=== PATIENT | male | born 1945 | race Caucasian/White ===

== ENCOUNTER 2020-06-18 16:40 | Emergency (ER) | payer OTHER ==
[~2020-06-18] VITALS: Ht 177.8 cm; Wt 102.1 kg
[~2020-06-18 16:40] MED LIST: ASPI325B PO; ASPI81EC PO; ATOR40TA PO; BENAML20/5 PO; CLON1 PO; CLOP75 PO; FENO145 PO; FOLI1 PO; IRBHYD150 PO; ISOMON30 PO; LEVSOD25 PO; LISI20 PO; OMEP20ER PO; SIMV40 PO; UBID100 PO; VENL150ER PO
[2020-06-18] MEDS ORDERED: AMLO10 PO (17:10)
[2020-06-18] MEDS ORDERED: METO100 PO (17:15)
[2020-06-18] MEDS ORDERED: B-1100 MG PO (17:15)
[2020-06-18 18:08] LABS: BASOPHILS ABSOLUTE AUTO 0.04 K/mm3 (0.00-0.23); BASOPHILS PERCENT AUTO 0 % (0-2); EOSINOPHILS ABSOLUTE AUTO 0.13 K/mm3 (0.00-0.68); EOSINOPHILS PERCENT AUTO 1 % (0-6); Hematocrit 38.6 % (37.0-53.0); Hemoglobin 13.3 g/dL (13.5-17.5); IMMATURE GRAN ABSOLUTE AUTO 0.08 K/mm3 (0.00-0.10); IMMATURE GRAN PERCENT AUTO 1 % (0-1); LYMPHOCYTES ABSOLUTE AUTO 1.06 K/mm3 (0.84-5.20); LYMPHOCYTES PERCENT AUTO 9 % (21-46); MONOCYTES ABSOLUTE AUTO 1.37 K/mm3 (0.16-1.47); MONOCYTES PERCENT AUTO 11 % (4-13); Mean Corpuscular HGB 31.3 pg (26.0-34.0); Mean Corpuscular HGB Conc 34.5 g/dL (31.5-36.5); Mean Corpuscular Volume 91 fL (80-100); Mean Platelet Volume 11.4 fL (9.1-12.4); NEUTROPHILS ABSOLUTE AUTO 9.44 K/mm3 (1.96-9.15); NEUTROPHILS PERCENT AUTO 78 % (41-73); Platelet Count 153 K/mm3 (150-400); RDW Coefficient Variation 13.9 % (11.7-14.2); RDW Standard Deviation 45.7 fL (35.1-46.3); Red Blood Cell Count 4.25 M/mm3 (4.30-5.90); White Blood Cell Count 12.12 K/mm3 (4.00-11.30)
[2020-06-18 18:42] LABS: Alanine Aminotransfer (ALT/SGP 33 U/L (12-78); Albumin, Blood 3.3 g/dL (3.4-5.0); Albumin/Globulin Ratio 0.9 (0.8-1.8); Alk Phos 117 U/L (50-136); Anion Gap 7 mmol/L (6-16); Aspartate Aminotrans (AST/SGOT 22 U/L (12-37); Bilirubin, Total 0.6 mg/dL (0.1-1.0); Blood Urea Nitrogen 15 mg/dL (8-24); Bun/Creatinine Ratio 15.1 (12.0-20.0); CO2, Blood 27 mmol/L (21-32); Calcium, Blood 9.5 mg/dL (8.5-10.1); Chloride, Blood 108 mmol/L (98-108); Globulin, Blood 3.7 g/dL (2.2-4.0); Glomerular Filtration Rate >60 (60-); Glucose, Blood 115 mg/dL (70-99); Potassium, Blood 3.6 mmol/L (3.5-5.5); Sodium, Blood 142 mmol/L (136-145)
== END 2020-06-18 22:54 | disposition home or self-care (01) ==
LOC: ER 16:40
PROVIDERS: Physician Assistant
DX: R51.9 Headache, unspecified (principal); M54.2 Cervicalgia; I10 Essential (primary) hypertension; I25.10 Atherosclerotic heart disease of native coronary artery without angina pectoris; I25.2 Old myocardial infarction; E78.5 Hyperlipidemia, unspecified; E03.9 Hypothyroidism, unspecified; E11.40 Type 2 diabetes mellitus with diabetic neuropathy, unspecified; Z88.2 Allergy status to sulfonamides; Z88.8 Allergy status to other drugs, medicaments and biological substances; Z79.82 Long term (current) use of aspirin; Z79.899 Other long term (current) drug therapy; Z86.73 Personal history of transient ischemic attack (TIA), and cerebral infarction without residual deficits; Z95.5 Presence of coronary angioplasty implant and graft
CPT/HCPCS: 70450; 70496; 70498; 80053; 85025; 93005; 93010; 96361; 96374; 96375; 96376; 99285-25; J1200; J1885; J2765; J3010; J7120; Q9967

== ENCOUNTER 2020-10-26 12:01 | Day surgery (SDC) | payer OTHER ==
[~2020-10-26] VITALS: Ht 180.3 cm; Wt 95.5 kg
[~2020-10-26 12:01] MED LIST changes: +AMLO10 PO; -ASPI81EC PO; +Aspir 8181 MG PO; +B-1100 MG PO; +HYDCHL12.5 PO; +METO100 PO; +VENL75ER PO
[2020-10-26] MEDS ORDERED: TRAZ100 PO (12:44)
--- NOTE | 2020-10-26 13:16 | NUR ---
DR. HAWTHORNE HERE TO SEE PATIENT.
--- NOTE | 2020-10-26 15:27 | NUR ---
PT WILL BE TRANSFERRED TO U 13. BELONGINGS TO GO WITH PATIENT. CELL PHONE, COIN CHANGE, BILLFOLD, CAR KEYS AND NAIL CLIPPERS IN SHOE.
--- NOTE | 2020-10-26 17:59 | NUR ---
PT ADMIT FROM HC S/P RT CORONARY STENT PLACEMENT. PT A&OX4, RESP EVEN AND UNLABORED ON ROOM AIR, SINUS RHYTHM ON MONITOR, RT RADIAL ACCESS SITE WITH TR BAND IN PLACE. VSS. PT'S SPOUSE UPDATED VIA TELEPHONE, DOLLY [phone]. WILL CONTINUE TO MONITOR AND TREAT ACCORDINGLY UNTIL CHANGE OF SHIFT.
--- NOTE | 2020-10-26 19:41 | NUR ---
CARE ASSUMPTION PT A&O X4. VSS. SPO2 > 92% ON RA. MONITOR SHOWS SR W/ PVC's, HR 80's. R RADIAL ACCESS SITE NOW COMPLETELY DEFLATED, WILL REMOVE TR BAND IN [address]ARD IN PLACE. NS GTT INFUSING PER ORDERS. WILL CONTINUE TO MONITOR.
--- NOTE | 2020-10-26 21:14 | NUR ---
TR BAND REMOVAL TR BAND REMOVAL WNL, NO BLEEDING, NO HEMATOMA. TRANSPARENT DRESSING APPLIED. ARM BOARD IN PLACE. PT DENIES PAIN/DISCOMFORT.
[2020-10-27 04:14] LABS: Hematocrit 34.8 % (37.0-53.0); Hemoglobin 11.8 g/dL (13.5-17.5); Mean Corpuscular HGB 28.4 pg (26.0-34.0); Mean Corpuscular HGB Conc 33.9 g/dL (31.5-36.5); Mean Corpuscular Volume 84 fL (80-100); Platelet Count 188 K/mm3 (150-400); RDW Standard Deviation 45.4 fL (35.1-46.3); Red Blood Cell Count 4.16 M/mm3 (4.30-5.90); White Blood Cell Count 8.91 K/mm3 (4.00-11.30)
[2020-10-27 04:45] LABS: Alanine Aminotransfer (ALT/SGP 23 U/L (12-78); Alk Phos 91 U/L (50-136); Anion Gap 8 mmol/L (6-16); Aspartate Aminotrans (AST/SGOT 30 U/L (12-37); Bilirubin, Total 1.1 mg/dL (0.1-1.0); Blood Urea Nitrogen 21 mg/dL (8-24); Bun/Creatinine Ratio 17.2 (12.0-20.0); CO2, Blood 27 mmol/L (21-32); Calcium, Blood 8.9 mg/dL (8.5-10.1); Chloride, Blood 109 mmol/L (98-108); Creatinine, Blood 1.22 mg/dL (0.60-1.20); Globulin, Blood 3.1 g/dL (2.2-4.0); Glomerular Filtration Rate >60 (60-); Glucose, Blood 96 mg/dL (70-99); Potassium, Blood 3.1 mmol/L (3.5-5.5); Sodium, Blood 144 mmol/L (136-145); Total Protein, Blood 6.1 g/dL (6.4-8.2)
--- NOTE | 2020-10-27 05:57 | NUR ---
SHIFT SUMMARY PT A&O X4. VSS. SPO2 > 92% ON RA. MONITOR SHOWS SB-SR, HR 50's-60's. R RADIAL ACCESS SITE WNL, NO BLEEDING, NO HEMATOMA, TRANSPARENT DRESSING & ARM BOARD IN PLACE. CALL TO MD HAWTHORNE THIS AM TO REPORT POTASSIUM: 3.1 W/ ORDER FOR 40 MEQ PO KCL. MD HAWTHORNE W/ OKAY FOR PT TO DISCHARGE HOME TODAY.
== END 2020-10-27 08:35 | disposition home or self-care (01) ==
LOC: MHTC 12:01 → PCU 15:06 → MHTC 10-27 08:35
PROVIDERS: Internal Medicine Cardiovascular Disease
DX: I25.10 Atherosclerotic heart disease of native coronary artery without angina pectoris (principal); I11.0 Hypertensive heart disease with heart failure; I50.9 Heart failure, unspecified; I77.819 Aortic ectasia, unspecified site; F10.10 Alcohol abuse, uncomplicated; E66.3 Overweight; E78.00 Pure hypercholesterolemia, unspecified; E03.9 Hypothyroidism, unspecified; G47.33 Obstructive sleep apnea (adult) (pediatric); F17.200 Nicotine dependence, unspecified, uncomplicated; Z86.73 Personal history of transient ischemic attack (TIA), and cerebral infarction without residual deficits; Z79.82 Long term (current) use of aspirin; Z68.26 Body mass index [BMI] 26.0-26.9, adult; Z98.61 Coronary angioplasty status
CPT/HCPCS: 36415; 80053; 85027; 85347; 93458; 93571; 99152; 99153; A9270; C1725; C1769; C1874; C1887; C1894; C9600; J1644; J2250; J3010; J7030; J7050; Q9967

== ENCOUNTER 2020-11-18 20:36 | Observation (INO) | payer OTHER ==
[~2020-11-18] VITALS: Ht 180.3 cm; Wt 92.7 kg
[~2020-11-18 20:36] MED LIST changes: +TRAZ100 PO
[2020-11-18] MEDS ORDERED: PLAVIX75 MG PO (21:17)
[2020-11-18] MEDS ORDERED: KLOR-CON 1010 ME1 PO (21:17)
[2020-11-18 21:39] LABS: BASOPHILS ABSOLUTE AUTO 0.05 K/mm3 (0.00-0.23); BASOPHILS PERCENT AUTO 1 % (0-2); EOSINOPHILS ABSOLUTE AUTO 0.26 K/mm3 (0.00-0.68); EOSINOPHILS PERCENT AUTO 3 % (0-6); Hematocrit 36.8 % (37.0-53.0); Hemoglobin 12.6 g/dL (13.5-17.5); IMMATURE GRAN ABSOLUTE AUTO 0.03 K/mm3 (0.00-0.10); IMMATURE GRAN PERCENT AUTO 0 % (0-1); LYMPHOCYTES ABSOLUTE AUTO 1.12 K/mm3 (0.84-5.20); LYMPHOCYTES PERCENT AUTO 12 % (21-46); MONOCYTES ABSOLUTE AUTO 0.81 K/mm3 (0.16-1.47); MONOCYTES PERCENT AUTO 9 % (4-13); Mean Corpuscular HGB 28.4 pg (26.0-34.0); Mean Corpuscular HGB Conc 34.2 g/dL (31.5-36.5); Mean Corpuscular Volume 83 fL (80-100); Mean Platelet Volume 11.8 fL (9.1-12.4); NEUTROPHILS PERCENT AUTO 75 % (41-73); Platelet Count 147 K/mm3 (150-400); RDW Coefficient Variation 15.5 % (11.7-14.2); RDW Standard Deviation 46.5 fL (35.1-46.3); Red Blood Cell Count 4.43 M/mm3 (4.30-5.90); White Blood Cell Count 9.17 K/mm3 (4.00-11.30)
[2020-11-18 22:02] LABS: Alanine Aminotransfer (ALT/SGP 18 U/L (12-78); Albumin, Blood 3.2 g/dL (3.4-5.0); Albumin/Globulin Ratio 0.9 (0.8-1.8); Alk Phos 110 U/L (50-136); Anion Gap 7 mmol/L (6-16); Aspartate Aminotrans (AST/SGOT 10 U/L (12-37); Bilirubin, Total 0.6 mg/dL (0.1-1.0); Blood Urea Nitrogen 23 mg/dL (8-24); Bun/Creatinine Ratio 16.4 (12.0-20.0); CO2, Blood 27 mmol/L (21-32); Calcium, Blood 9.1 mg/dL (8.5-10.1); Chloride, Blood 108 mmol/L (98-108); Ethanol (Alcohol), Blood, Med <3 mg/dL; Globulin, Blood 3.4 g/dL (2.2-4.0); Glomerular Filtration Rate 53 (60-); Glucose, Blood 102 mg/dL (70-99); Potassium, Blood 3.3 mmol/L (3.5-5.5); Salicylate <1.7 mg/dL (2.8-20.0); Sodium, Blood 142 mmol/L (136-145); Total Protein, Blood 6.6 g/dL (6.4-8.2); Troponin I 0.054 ng/mL (0.000-0.040)
[2020-11-18 22:03] LABS: Acetaminophen, Random <2.0 ug/mL (10.0-30.0)
[2020-11-18 23:03] LABS: Source, Urine Catheter
[2020-11-18 23:06] LABS: Appearance, Urine Clear (Clear); Blood, Urine Neg (Neg); Color, Urine Amber (P-Yellow); Glucose Qualitative, Urine Neg (Neg); Ketones, Urine Neg (Neg); Leukocyte Esterase, Urine 1+ (Neg); Nitrite, Urine Neg (Neg); Protein, Urine 2+ (Neg); Urobilinogen, Urine 2+ (Normal)
[2020-11-18 23:09] LABS: Bilirubin, Urine 1+ (Neg)
[2020-11-18 23:11] LABS: Bacteria Mod /hpf; Red Blood Cells, Urine 0-2 /hpf (0-2); Squamous Epithelial Cells Few /hpf (Few)
[2020-11-18 23:12] LABS: Mucus Light (0-Heavy)
[2020-11-18 23:16] LABS: U Amphetamine Screen DETECTED; U Barbituate Screen Not Detected; U Benzodiazapine Screen Not Detected; U Buprenorphine Screen Not Detected; U Cannabinoids Screen DETECTED; U Cocaine Screen Not Detected; U Methadone Screen Not Detected; U Methamphetamine Screen DETECTED; U Opiates Screen Not Detected; U Oxycodone Screen Not Detected; U Phencyclidine Screen Not Detected; U Propoxyphene Screen Not Detected
--- NOTE | 2020-11-19 05:10 | NUR ---
SHIFT SUMMARY- PT. NEW ADMIT FROM ED FOR AMS/WEAKNESS. ARRIVED VIA STRETCHER. ORIENTED TO STAFF AND ROOM. A&O DURING THE NIGHT, I ASSIST. PT. HAD NO COMPLAINTS OF PAIN OR DISCOMFORT T/O THE NIGHT. CONT/INCONT, ATTENDS IN PLACE. PT. ASLEEP MOST OF THE MORING, NO APPARENT DISTRESS NOTED. VSS. CALL LIGHT WITHIN REACH, SIDE RAILS UPX2, AND BED ALARM ON FOR SAFETY. WILL CONT TO MONITOR.
--- NOTE | 2020-11-19 14:22 | NUR ---
PATIENT ALERT AND ORIENTED, VSS. DENIES CHEST PAIN/PRESSURE THIS SHIFT. PATIENT PROVIDED DISCHARGE INFO REGARDING FOLLOW UP PLANS, REASONS TO RETURN TO THE HOSPITAL, AND MEDICATION INFORMATION. PATIENT VERBALIZED UNDERSTANDING. NO SIGNS OF ACUTE DISTRESS.
== END 2020-11-19 15:03 | disposition home or self-care (01) ==
LOC: ER 20:36 → PCU 20:37 → ER 11-19 01:03 → PCU 11-19 01:03
PROVIDERS: Emergency Medicine; ADMIT Family Medicine
DX: F15.10 Other stimulant abuse, uncomplicated (principal); I25.10 Atherosclerotic heart disease of native coronary artery without angina pectoris; I12.9 Hypertensive chronic kidney disease with stage 1 through stage 4 chronic kidney disease, or unspecified chronic kidney disease; N18.30 Chronic kidney disease, stage 3 unspecified; E78.5 Hyperlipidemia, unspecified; E03.9 Hypothyroidism, unspecified; G47.33 Obstructive sleep apnea (adult) (pediatric); E87.6 Hypokalemia; I25.2 Old myocardial infarction; E66.9 Obesity, unspecified; Z68.30 Body mass index [BMI] 30.0-30.9, adult; Z87.891 Personal history of nicotine dependence; Z95.5 Presence of coronary angioplasty implant and graft; Z88.2 Allergy status to sulfonamides; Z88.8 Allergy status to other drugs, medicaments and biological substances; Z79.02 Long term (current) use of antithrombotics/antiplatelets
CPT/HCPCS: 36415; 80053; 81001; 82140; 83605; 84484; 85025; 87086; 93005; 93010; 96360; 96372; 97116; 97162; 97165; 97535; 99285-25; A9270; G0378; G0480; J1650; J7030

== ENCOUNTER 2020-12-29 19:38 | Inpatient (IN) | payer OTHER ==
[~2020-12-29] VITALS: Ht 180.3 cm; Wt 91.2 kg
[~2020-12-29 19:38] MED LIST changes: +KLOR-CON 1010 ME1 PO; +PLAVIX75 MG PO
[2020-12-29 20:03] LABS: BASOPHILS ABSOLUTE AUTO 0.06 K/mm3 (0.00-0.23); BASOPHILS PERCENT AUTO 1 % (0-2); EOSINOPHILS ABSOLUTE AUTO 0.12 K/mm3 (0.00-0.68); EOSINOPHILS PERCENT AUTO 1 % (0-6); Hemoglobin 12.5 g/dL (13.5-17.5); IMMATURE GRAN ABSOLUTE AUTO 0.06 K/mm3 (0.00-0.10); IMMATURE GRAN PERCENT AUTO 1 % (0-1); LYMPHOCYTES ABSOLUTE AUTO 1.46 K/mm3 (0.84-5.20); LYMPHOCYTES PERCENT AUTO 13 % (21-46); MONOCYTES ABSOLUTE AUTO 1.18 K/mm3 (0.16-1.47); MONOCYTES PERCENT AUTO 10 % (4-13); Mean Corpuscular HGB 28.2 pg (26.0-34.0); Mean Corpuscular HGB Conc 32.9 g/dL (31.5-36.5); Mean Corpuscular Volume 86 fL (80-100); NEUTROPHILS ABSOLUTE AUTO 8.53 K/mm3 (1.96-9.15); NEUTROPHILS PERCENT AUTO 75 % (41-73); Platelet Count 159 K/mm3 (150-400); RDW Coefficient Variation 15.6 % (11.7-14.2); RDW Standard Deviation 48.9 fL (35.1-46.3); Red Blood Cell Count 4.43 M/mm3 (4.30-5.90); White Blood Cell Count 11.41 K/mm3 (4.00-11.30)
[2020-12-29 20:24] LABS: Alanine Aminotransfer (ALT/SGP 21 U/L (12-78); Albumin, Blood 3.7 g/dL (3.4-5.0); Albumin/Globulin Ratio 1.1 (0.8-1.8); Alk Phos 115 U/L (50-136); Anion Gap 7 mmol/L (6-16); Aspartate Aminotrans (AST/SGOT 9 U/L (12-37); Bilirubin, Total 1.1 mg/dL (0.1-1.0); Blood Urea Nitrogen 23 mg/dL (8-24); Bun/Creatinine Ratio 19.3 (12.0-20.0); CO2, Blood 21 mmol/L (21-32); Calcium, Blood 9.2 mg/dL (8.5-10.1); Chloride, Blood 114 mmol/L (98-108); Creatinine, Blood 1.19 mg/dL (0.60-1.20); Globulin, Blood 3.5 g/dL (2.2-4.0); Glomerular Filtration Rate >60 (60-); Glucose, Blood 102 mg/dL (70-99); Potassium, Blood 3.7 mmol/L (3.5-5.5); Sodium, Blood 142 mmol/L (136-145); Total Protein, Blood 7.2 g/dL (6.4-8.2); Troponin I 0.128 ng/mL (0.000-0.040)
[2020-12-29 21:59] LABS: PCO2 Arterial 32.9 mmHg (35-45); PO2 Arterial 82.5 mmHg (80-100); pH Blood Arterial 7.43 (7.35-7.45)
--- NOTE | 2020-12-30 07:31 | NUR ---
NEW PT FROM ER, CONFUSED BUT COOPERATIVE, CALL LIGHT IN REACH, CURRENTLY ON RM AIR AND SALINE LOCKED, ABLE TO TRANSFER TO BSC WITH SB ASSIST
[2020-12-30 09:41] LABS: Anion Gap 10 mmol/L (6-16); Blood Urea Nitrogen 22 mg/dL (8-24); Bun/Creatinine Ratio 20.4 (12.0-20.0); CO2, Blood 21 mmol/L (21-32); Calcium, Blood 9.3 mg/dL (8.5-10.1); Chloride, Blood 110 mmol/L (98-108); Creatinine, Blood 1.08 mg/dL (0.60-1.20); Glomerular Filtration Rate >60 (60-); Glucose, Blood 98 mg/dL (70-99); Potassium, Blood 3.2 mmol/L (3.5-5.5); Sodium, Blood 141 mmol/L (136-145); Troponin I 0.096 ng/mL (0.000-0.040)
--- NOTE | 2020-12-30 16:50 | NUR ---
SHIFT SUMMARY- PT A/OX2, PERSON AND PLACE. PT FORGETFUL AT TIMES. LS CLEAR, ON RA, MINIMAL SOB WITH EXERTION. TELE SR WITH PVC'S AT 75. PT HAS DENIED ANY CHEST PAIN OR OTHER COMPLAINTS T/O THE DAY. PT STARTED ON 1500ML FLUID RESTRICTION, STRICT I&O HOWEVER PT INCONT AT TIMES. TIMBER BUCKER SPOKE TO PT REGARDING CHF DIET. DAUGHTER FROM [place] DOES REPORT HER FATHER IS A HEAVY DRINKER BUT UNSURE OF HOW MUCH HE DRINKS, NO SIGNS OF WITHDRAWEL NOTED AT THIS TIME. DAUGHTER UPDATED. PT UP TO BSC WITH SBA, UNSTEADY AT TIMES. POTASSIUM OF 3.2, 40 MEQ ORAL POTASSIUM GIVEN. NO OTHER ACUTE CHANGES THIS SHIFT. POSS D/C HOME TOMORROW.
--- NOTE | 2020-12-31 06:07 | NUR ---
SHIFT SUMMARY ASSUMED CARE OF PT AT 1900. PT IS A/OX2. HEART SOUNDS REGULAR, TELE SHOWS SINUS WITH PVC PAC @ 54. LUNG SOUNDS CLEAR. PT WAS INCONTINENT OF URINE T/O THE NIGHT. PT REFUSED TO STAND FOR WEIGHT THIS AM SAYING "I'M TIRED". CALL LIGHT IN REACH, BED IN LOWEST POSITON.
[2020-12-31] MEDS ORDERED: SPIR25 PO (15:32)
--- NOTE | 2020-12-31 18:18 | NUR ---
DISCHARGE SUMMARY PATIENT DISCHARGED TO HOME. PATIENT ALERT AND ORIENTED THIS SHIFT. PATIENT WITHOUT DIFFICULTY BREATHING THIS SHIFT. PATIENT LUNG SOUNDS CLEAR. IV REMOVED PRIOR TO DISCHARGE. PATIENT WAS DRESSING TO GO HOME LOUD THUMP WAS HEARD INSIDE THE ROOM FROM NURSE DISPATCH SUPERVISOR OUTSIDE THE ROOM. PATIENT FOUND ON HANDS AND KNEES, ATTEMPTING TO GET UP. PATIENT STATES HE FELL WHILE TRYING TO FIX HIS PANT LEG. PATIENT STOOD AND SAT BACK ON THE BED. PATIENT STATES HE LANDED ON ELBOWS AND KNEES. NO BRUISING NOTED. VITAL SIGNS OBTAINED, WNL. PATIENT STATES NO PAIN. DR NOTIFIED OF FALL. PATIENT AND SPOUSE PROVIDED WITH DISCHARGE INSTRUCTIONS, STATE NO QUESTIONS AT THIS TIME. PATIENT TO VEHICLE VIA WHEELCHAIR, SPOUSE PROVIDING TRANSPORTATION HOME.
== END 2020-12-31 18:06 | disposition home or self-care (01) | DRG 280 ==
LOC: ER 19:38 → MEDS 23:18
PROVIDERS: Emergency Medicine; ADMIT Internal Medicine
DX: I11.0 Hypertensive heart disease with heart failure (principal); I50.21 Acute systolic (congestive) heart failure; I21.A1 Myocardial infarction type 2; J96.01 Acute respiratory failure with hypoxia; I25.10 Atherosclerotic heart disease of native coronary artery without angina pectoris; F32.9 Major depressive disorder, single episode, unspecified; E03.9 Hypothyroidism, unspecified; F41.9 Anxiety disorder, unspecified; E78.5 Hyperlipidemia, unspecified; Z95.5 Presence of coronary angioplasty implant and graft; Z98.890 Other specified postprocedural states; I25.2 Old myocardial infarction; E11.9 Type 2 diabetes mellitus without complications; E11.40 Type 2 diabetes mellitus with diabetic neuropathy, unspecified; Z86.73 Personal history of transient ischemic attack (TIA), and cerebral infarction without residual deficits; Z85.46 Personal history of malignant neoplasm of prostate; Z90.79 Acquired absence of other genital organ(s)
CPT/HCPCS: 36415; 36600; 71046; 80048; 80053; 82803; 83880; 84484; 85025; 93005; 93010; 96374; 97116; 97161; 99285-25; A9270; J0360; J1650; J1940

== ENCOUNTER 2021-05-20 18:34 | Inpatient (IN) | payer OTHER ==
[~2021-05-20] VITALS: Ht 180.3 cm; Wt 90.7 kg
[~2021-05-20 18:34] MED LIST changes: +SPIR25 PO
[2021-05-20 19:57] LABS: Bicarbonate Venous 22.3 mmol/L (24.0-30.0); PCO2 Venous 35.9 mmHg (38-42); PO2 Venous 78.6 mmHg (38-42); pH Blood Venous 7.39 (7.34-7.37)
[2021-05-20 20:06] LABS: BASOPHILS ABSOLUTE AUTO 0.09 K/mm3 (0.00-0.23); BASOPHILS PERCENT AUTO 1 % (0-2); EOSINOPHILS ABSOLUTE AUTO 0.31 K/mm3 (0.00-0.68); EOSINOPHILS PERCENT AUTO 2 % (0-6); Hematocrit 41.4 % (37.0-53.0); IMMATURE GRAN ABSOLUTE AUTO 0.13 K/mm3 (0.00-0.10); IMMATURE GRAN PERCENT AUTO 1 % (0-1); LYMPHOCYTES PERCENT AUTO 9 % (21-46); MONOCYTES ABSOLUTE AUTO 1.37 K/mm3 (0.16-1.47); MONOCYTES PERCENT AUTO 9 % (4-13); Mean Corpuscular HGB 29.8 pg (26.0-34.0); Mean Corpuscular HGB Conc 33.8 g/dL (31.5-36.5); Mean Corpuscular Volume 88 fL (80-100); Mean Platelet Volume 11.5 fL (9.1-12.4); NEUTROPHILS ABSOLUTE AUTO 12.12 K/mm3 (1.96-9.15); NEUTROPHILS PERCENT AUTO 79 % (41-73); Platelet Count 227 K/mm3 (150-400); RDW Coefficient Variation 15.1 % (11.7-14.2); RDW Standard Deviation 48.1 fL (35.1-46.3); White Blood Cell Count 15.42 K/mm3 (4.00-11.30)
[2021-05-20 20:29] LABS: Albumin, Blood 3.3 g/dL (3.4-5.0); Albumin/Globulin Ratio 0.8 (0.8-1.8); Bilirubin, Direct 0.3 mg/dL (0.0-0.3); Bilirubin, Indirect 0.8 mg/dL (0.1-0.7); Bilirubin, Total 1.1 mg/dL (0.1-1.0); Bun/Creatinine Ratio 21.8 (12.0-20.0); Calcium, Blood 9.5 mg/dL (8.5-10.1); Creatinine, Blood 1.42 mg/dL (0.60-1.20); Globulin, Blood 4.1 g/dL (2.2-4.0); Magnesium, Blood 2.2 mg/dL (1.6-2.4); Potassium, Blood 3.7 mmol/L (3.5-5.5); Total Protein, Blood 7.4 g/dL (6.4-8.2); Troponin I 0.074 ng/mL (0.000-0.040)
[2021-05-20 20:46] LABS: SARS-Cov-2 (COVID-19) PCR, MMC NEGATIVE (NEGATIVE)
--- NOTE | 2021-05-21 02:41 | NUR ---
ADMISSION NOTE: RECEIVED PT FROM ER VIA STRETCHER AAOX2. DISORIENTED TO TIME. PATIENT DENIES ANY DISCOMFORT. O2 2l VIA NC IN PLACE. LUNGS WITH CRACKLES. NO RESP DISTRESS NOTED. B/P ON ARRIVAL 173/107, SAT 94%. PATIENT IS INCONTINENT OF URINE. MADE COMFORTABLE IN BED. ORIENTED TO ROOM, CALL LIGHT, AND SURROUNDINGS. FIRST DOSE OF LOPRESSOR GIVEN. PT IS ON TELE SR WITH PVC. INSTRUCTED PT TO CALL FOR ANY DISCOMFORT. HE DENIES CHEST PAIN. PT IS FORGETFUL. BED ALARM EXIT ON. WILL CONTINUE TO MONITOR.
--- NOTE | 2021-05-21 03:19 | NUR ---
RECEIVED CALL FROM [employer] THAT PT IS HAVING FREQUENT PVCS WITH COUPLETS. DR. RIVAS MADE AWARE. NO NEW ORDER GIVEN. PT IS RESTING IN BED. DENIES CHEST PAIN. WILL CONTINUE TO MONITOR.
--- NOTE | 2021-05-21 04:54 | NUR ---
PT RESTING IN BED QUIETLY. RESP UNLABORED. DR. RIVAS WAS MADE AWARE OF PVC AND COUPLETS ON MONITOR. D-DIMER ORDERED STAT. PT DENIES CHEST PAIN. O2 IN PLACE. DENIES SOB. WILL CONTINUE TO MONITOR.
[2021-05-21 05:37] LABS: BASOPHILS ABSOLUTE AUTO 0.07 K/mm3 (0.00-0.23); BASOPHILS PERCENT AUTO 1 % (0-2); EOSINOPHILS ABSOLUTE AUTO 0.09 K/mm3 (0.00-0.68); EOSINOPHILS PERCENT AUTO 1 % (0-6); Hematocrit 43.1 % (37.0-53.0); Hemoglobin 14.6 g/dL (13.5-17.5); IMMATURE GRAN ABSOLUTE AUTO 0.11 K/mm3 (0.00-0.10); IMMATURE GRAN PERCENT AUTO 1 % (0-1); LYMPHOCYTES ABSOLUTE AUTO 1.02 K/mm3 (0.84-5.20); LYMPHOCYTES PERCENT AUTO 7 % (21-46); MONOCYTES ABSOLUTE AUTO 1.35 K/mm3 (0.16-1.47); MONOCYTES PERCENT AUTO 9 % (4-13); Mean Corpuscular HGB 29.4 pg (26.0-34.0); Mean Corpuscular HGB Conc 33.9 g/dL (31.5-36.5); Mean Corpuscular Volume 87 fL (80-100); Mean Platelet Volume 11.5 fL (9.1-12.4); NEUTROPHILS ABSOLUTE AUTO 12.79 K/mm3 (1.96-9.15); NEUTROPHILS PERCENT AUTO 83 % (41-73); Platelet Count 248 K/mm3 (150-400); RDW Coefficient Variation 14.8 % (11.7-14.2); RDW Standard Deviation 47.6 fL (35.1-46.3); Red Blood Cell Count 4.96 M/mm3 (4.30-5.90); White Blood Cell Count 15.43 K/mm3 (4.00-11.30)
[2021-05-21 06:07] LABS: Albumin, Blood 3.4 g/dL (3.4-5.0); Albumin/Globulin Ratio 0.8 (0.8-1.8); Bun/Creatinine Ratio 24.4 (12.0-20.0); Calcium, Blood 9.7 mg/dL (8.5-10.1); Creatinine, Blood 1.27 mg/dL (0.60-1.20); Globulin, Blood 4.2 g/dL (2.2-4.0); Potassium, Blood 3.6 mmol/L (3.5-5.5); Thyroid Stimulating Hormone 0.722 uIU/mL (0.360-4.800); Total Protein, Blood 7.6 g/dL (6.4-8.2)
--- NOTE | 2021-05-21 17:11 | NUR ---
SHIFT SUMMARY PT A&Ox3 THIS SHIFT, CONDITION APPEARS TO BE IMPROVING SINCE ADMISSION. TROPONIN LEVELS DECENDING. PT DENIES ANY DISTRESS AND REMAINS ON RA. ECHO COMPLETED THIS SHIFT. PASSED ST EVAL THIS SHIFT. PT IS INCONT OF URINE, ENCOURAGING PT TO USE URINAL. GAIT IS MORE STEADY, DENIES ANY SOB OR DIZZINESS WITH AMBULATION. SBA FOR SAFETY, AND BED ALARM ON DUE TO FORGETFULNESS. PT IS CURRENTLY RESTING IN BED WITH CALL LIGHT WITHIN REACH.
--- NOTE | 2021-05-22 03:01 | NUR ---
PT RESTING IN BED. NO SOB. DENIES CHEST PAIN. VSS. SR WITH PVC ON MONITOR. SAFETY PRECAUTIONS MAINTAINED. MEDS GIVEN. WILL CONTINUE TO MONITOR.
[2021-05-22 04:59] LABS: BASOPHILS ABSOLUTE AUTO 0.06 K/mm3 (0.00-0.23); BASOPHILS PERCENT AUTO 1 % (0-2); EOSINOPHILS ABSOLUTE AUTO 0.09 K/mm3 (0.00-0.68); EOSINOPHILS PERCENT AUTO 1 % (0-6); Hematocrit 41.4 % (37.0-53.0); Hemoglobin 13.9 g/dL (13.5-17.5); IMMATURE GRAN ABSOLUTE AUTO 0.08 K/mm3 (0.00-0.10); IMMATURE GRAN PERCENT AUTO 1 % (0-1); LYMPHOCYTES ABSOLUTE AUTO 1.32 K/mm3 (0.84-5.20); LYMPHOCYTES PERCENT AUTO 11 % (21-46); MONOCYTES ABSOLUTE AUTO 1.09 K/mm3 (0.16-1.47); MONOCYTES PERCENT AUTO 9 % (4-13); Mean Corpuscular HGB 29.5 pg (26.0-34.0); Mean Corpuscular HGB Conc 33.6 g/dL (31.5-36.5); Mean Corpuscular Volume 88 fL (80-100); Mean Platelet Volume 11.5 fL (9.1-12.4); NEUTROPHILS ABSOLUTE AUTO 9.36 K/mm3 (1.96-9.15); NEUTROPHILS PERCENT AUTO 78 % (41-73); Platelet Count 205 K/mm3 (150-400); RDW Coefficient Variation 14.8 % (11.7-14.2); RDW Standard Deviation 47.9 fL (35.1-46.3); Red Blood Cell Count 4.71 M/mm3 (4.30-5.90)
[2021-05-22 11:49] LABS: U Amphetamine Screen DETECTED; U Barbituate Screen Not Detected; U Benzodiazapine Screen Not Detected; U Buprenorphine Screen Not Detected; U Cannabinoids Screen DETECTED; U Cocaine Screen Not Detected; U Methadone Screen Not Detected; U Methamphetamine Screen DETECTED; U Opiates Screen Not Detected; U Oxycodone Screen Not Detected; U Phencyclidine Screen Not Detected; U Propoxyphene Screen Not Detected
[2021-05-22] MEDS ORDERED: ATOR40TA PO (13:29)
[2021-05-22] MEDS ORDERED: CLOP75 PO (13:29)
[2021-05-22] MEDS ORDERED: DOXY100 PO (13:30)
[2021-05-22] MEDS ORDERED: FURO40 PO (13:30)
[2021-05-22] MEDS ORDERED: LISI20 PO (13:31)
[2021-05-22] MEDS ORDERED: SPIR25 PO (13:31)
--- NOTE | 2021-05-22 15:17 | NUR ---
PATIENT DISCHARGED TO HOME WITH . DISCUSSED D/C INSTRUCTIONS WITH OVER THE PHONE PRIOR TO HER ARRIVAL, VERBALIZED UNDERSTANDING. GAVE RX NOTE TO GET LABS DRAWN. IV SALINE LOCK REMOVED WITHOUT INCIDENT. OFF UNIT VIA W/C AT 1504. NO PERSONAL BELONGINGS LEFT BEHIND IN ROOM.
== END 2021-05-22 15:04 | disposition home or self-care (01) | DRG 871 ==
LOC: ER 18:34 → MEDS 23:17
PROVIDERS: Family Medicine; Student in an Organized Health Care Education/Training Program; ADMIT Internal Medicine
DX: A41.9 Sepsis, unspecified organism (principal); J96.01 Acute respiratory failure with hypoxia; I50.23 Acute on chronic systolic (congestive) heart failure; G92.9 Unspecified toxic encephalopathy; N17.9 Acute kidney failure, unspecified; Z20.822 Contact with and (suspected) exposure to COVID-19; I11.0 Hypertensive heart disease with heart failure; E03.9 Hypothyroidism, unspecified; F32.9 Major depressive disorder, single episode, unspecified; F41.9 Anxiety disorder, unspecified; E11.42 Type 2 diabetes mellitus with diabetic polyneuropathy; E78.5 Hyperlipidemia, unspecified; I25.10 Atherosclerotic heart disease of native coronary artery without angina pectoris; F15.10 Other stimulant abuse, uncomplicated; I25.2 Old myocardial infarction; Z79.02 Long term (current) use of antithrombotics/antiplatelets; Z88.2 Allergy status to sulfonamides; Z88.6 Allergy status to analgesic agent; Z87.820 Personal history of traumatic brain injury; Z79.899 Other long term (current) drug therapy; Z95.5 Presence of coronary angioplasty implant and graft; Z85.46 Personal history of malignant neoplasm of prostate; Z98.890 Other specified postprocedural states
CPT/HCPCS: 36415; 71046; 80048; 80053; 80076; 82803; 82947; 83605; 83735; 83880; 84145; 84443; 84484; 85025; 85379; 87040; 92610; 93005; 93010; 93306; 96374; 96375; 97110; 97162; 97167; 97535; 99285-25; A9270; J0360; J0696; J1940; J3475; J7050; U0004

== ENCOUNTER 2021-08-26 19:51 | Inpatient (IN) | payer OTHER ==
[~2021-08-26] VITALS: Ht 177.8 cm; Wt 92.4 kg
[~2021-08-26 19:51] MED LIST changes: +DOXY100 PO; +FURO20 PO
[2021-08-26 20:28] LABS: BASOPHILS ABSOLUTE AUTO 0.06 K/mm3 (0.00-0.23); BASOPHILS PERCENT AUTO 1 % (0-2); EOSINOPHILS ABSOLUTE AUTO 0.04 K/mm3 (0.00-0.68); EOSINOPHILS PERCENT AUTO 0 % (0-6); Hematocrit 34.3 % (37.0-53.0); Hemoglobin 10.7 g/dL (13.5-17.5); IMMATURE GRAN ABSOLUTE AUTO 0.15 K/mm3 (0.00-0.10); IMMATURE GRAN PERCENT AUTO 1 % (0-1); LYMPHOCYTES ABSOLUTE AUTO 0.74 K/mm3 (0.84-5.20); LYMPHOCYTES PERCENT AUTO 6 % (21-46); MONOCYTES ABSOLUTE AUTO 1.07 K/mm3 (0.16-1.47); MONOCYTES PERCENT AUTO 8 % (4-13); Mean Corpuscular HGB 29.6 pg (26.0-34.0); Mean Corpuscular HGB Conc 31.2 g/dL (31.5-36.5); Mean Corpuscular Volume 95 fL (80-100); Mean Platelet Volume 11.7 fL (9.1-12.4); NEUTROPHILS ABSOLUTE AUTO 10.85 K/mm3 (1.96-9.15); NEUTROPHILS PERCENT AUTO 84 % (41-73); Platelet Count 171 K/mm3 (150-400); RDW Coefficient Variation 19.4 % (11.7-14.2); RDW Standard Deviation 64.3 fL (35.1-46.3); Red Blood Cell Count 3.62 M/mm3 (4.30-5.90); White Blood Cell Count 12.91 K/mm3 (4.00-11.30)
[2021-08-26 20:52] LABS: Albumin, Blood 2.9 g/dL (3.4-5.0); Albumin/Globulin Ratio 0.8 (0.8-1.8); Bilirubin, Total 0.9 mg/dL (0.1-1.0); Bun/Creatinine Ratio 27.2 (12.0-20.0); Calcium, Blood 9.3 mg/dL (8.5-10.1); Creatinine, Blood 1.62 mg/dL (0.60-1.20); Globulin, Blood 3.8 g/dL (2.2-4.0); Total Protein, Blood 6.7 g/dL (6.4-8.2); Troponin I 0.048 ng/mL (0.000-0.040)
[2021-08-26 22:11] LABS: Influenza A, PCR NEGATIVE (NEGATIVE); Influenza B, PCR NEGATIVE (NEGATIVE); Resp Syncytial Virus, PCR NEGATIVE (NEGATIVE); SARS-Cov-2 (COVID-19) PCR, MMC NEGATIVE (NEGATIVE)
[2021-08-27 06:25] LABS: BASOPHILS ABSOLUTE AUTO 0.07 K/mm3 (0.00-0.23); BASOPHILS PERCENT AUTO 1 % (0-2); EOSINOPHILS ABSOLUTE AUTO 0.02 K/mm3 (0.00-0.68); EOSINOPHILS PERCENT AUTO 0 % (0-6); Hematocrit 33.5 % (37.0-53.0); Hemoglobin 10.4 g/dL (13.5-17.5); IMMATURE GRAN ABSOLUTE AUTO 0.15 K/mm3 (0.00-0.10); IMMATURE GRAN PERCENT AUTO 1 % (0-1); LYMPHOCYTES ABSOLUTE AUTO 1.26 K/mm3 (0.84-5.20); LYMPHOCYTES PERCENT AUTO 9 % (21-46); MONOCYTES ABSOLUTE AUTO 1.44 K/mm3 (0.16-1.47); MONOCYTES PERCENT AUTO 11 % (4-13); Mean Corpuscular HGB 29.6 pg (26.0-34.0); Mean Corpuscular Volume 95 fL (80-100); Mean Platelet Volume 11.6 fL (9.1-12.4); NEUTROPHILS ABSOLUTE AUTO 10.76 K/mm3 (1.96-9.15); NEUTROPHILS PERCENT AUTO 79 % (41-73); NRBC ABSOLUTE 0.02 K/mm3 (0.00-0.02); NRBC Auto 0.1 /100 WBC (0.0-0.2); Platelet Count 186 K/mm3 (150-400); RDW Coefficient Variation 19.6 % (11.7-14.2); RDW Standard Deviation 64.8 fL (35.1-46.3); Red Blood Cell Count 3.51 M/mm3 (4.30-5.90)
[2021-08-27 07:05] LABS: Bun/Creatinine Ratio 27.4 (12.0-20.0); Creatinine, Blood 1.79 mg/dL (0.60-1.20); Magnesium, Blood 2.7 mg/dL (1.6-2.4); Potassium, Blood 5.5 mmol/L (3.5-5.5); Thyroid Stimulating Hormone 3.57 uIU/mL (0.360-4.800)
--- NOTE | 2021-08-27 12:40 | NUR ---
pt has AD sent from [place] stating no porlonging of life support if he declines. will review with pt and family.
--- NOTE | 2021-08-27 16:26 | NUR ---
REPORT RECEIVED FROM PAVEL HUSAIN. PT TX TO MED FLOOR AT 1610. PT A/O X 2, NAME , WHERE HE IS AT BUT DID NOT KNOW THE DATE OR YEAR. PT USING CCESSORY MUSCLES TO BREATH POST TX TO BED. PT VERY WEAK AND NEEDED VERBAL COMMANDS TO TX. PT ON 2 LPM SATS AT 100%. PT INSTRUCTED ON PURSED LIP BREATHING. PT REPORTS PAIN R HIP 3/10. PT ORIENTED TO ROOM, CALL LIGHT. BED IN LOW POSITION AND ALARM ON.
--- NOTE | 2021-08-27 18:34 | NUR ---
SHIFT SUMMARY: PT ATE DINNER WELL TONIGHT, CONTINUED USE OF ACCESSORY MUSCLES AT TIMES WITH ANY EXERTION. RECOVERS AFTER 2-3 MINUTES. PT HAS DEMENTIA AT BASELINE PER , HE DOES NOT ALWAYS ANSWER QUESTIONS APPROP. PT HAD LITTLE URINE OUTPUT THIS SHIFT AND WILL PASS ON CONCERNS TO NOC SHIFT. HE MAY NEED TO BE BLADDER SCANNED. HE IS INCONTINENT OF URINE AND MAY NEED TO BE STRAIGHT CATHED TO GET URINE SAMPLE.
[2021-08-27 22:49] LABS: Source, Urine Clean Catch
[2021-08-27 22:52] LABS: Bicarbonate Venous 16.2 mmol/L (24.0-30.0); PCO2 Venous 41.7 mmHg (38-42)
[2021-08-27 22:54] LABS: pH Blood Venous 7.23 (7.34-7.37)
[2021-08-27 22:56] LABS: Bilirubin, Urine Neg (Neg); Blood, Urine Neg (Neg); Glucose Qualitative, Urine Neg (Neg); Ketones, Urine Neg (Neg); Leukocyte Esterase, Urine Neg (Neg); Nitrite, Urine Neg (Neg); Protein, Urine 2+ (Neg); Urobilinogen, Urine 2+ (Normal)
[2021-08-27 23:03] LABS: Appearance, Urine Clear (Clear); Color, Urine Yellow (P-Yellow)
[2021-08-27 23:04] LABS: Amorphous Light (0-Heavy); Bacteria Rare /hpf; Red Blood Cells, Urine Not Seen /hpf (0-2); Squamous Epithelial Cells Few /hpf (Few); White Blood Cells, Urine Not Seen /hpf (0-5)
[2021-08-27 23:14] LABS: Anion Gap 14 mmol/L (6-16); Blood Urea Nitrogen 64 mg/dL (8-24); Bun/Creatinine Ratio 28.6 (12.0-20.0); CO2, Blood 18 mmol/L (21-32); Chloride, Blood 108 mmol/L (98-108); Creatinine, Blood 2.24 mg/dL (0.60-1.20); Glomerular Filtration Rate 29 (60-); Glucose, Blood 109 mg/dL (70-99); Phosphorus, Blood 6.4 mg/dL (2.5-4.9); Potassium, Blood 4.9 mmol/L (3.5-5.5); Sodium, Blood 140 mmol/L (136-145)
--- NOTE | 2021-08-27 23:43 | NUR ---
ASSUMED CARE AT 1900. PT AAOX1-2, CONFUSED, IMPULSIVE AND THE SHFIT PROGRESSED BECAME MORE DIFFICULT TO REDIRECT. PT WAS ON 2-3L OF O2 VIA NC, O2 SAT 94-100%, BUT PT KEPT REMOVING NASAL CANNULA AND WOULD BECOME SOB. PT BASELINE PER SHIFT REPORT WAS NOT ABLE TO TOLERATE ACTIVITY-WOULD BECOME SOB, TACHYPNEIC AND HAVE ACCESSORY MUSCLE USE BUT WOULD RECOVER AFTER A FEW MINUTES AT REST. 2100 DOSE OF LOPRESSOR NOT GIVEN DUE TO PARAMETERS-PT'S BP WAS 116/69. PT WAS VERY RESTLESS, AGITATED AND CONFUSED; AT ABOUT 2134, HE PULLED OUT HIS RIGHT WRIST 22G IV WITH CATH TIP INTACT. IV VANCOMYCIN INFUSION STOOPED DUE TO LOSS OF IV ACCESS. DR. LOERA NOTIFIED OF PT'S BEHAVIORS AND ORDERS RECEIVED FOR HALDOL 2.5MG IM X1 DOSE NOW. PT CONTINUED TO REMOVE NASAL CANNULA FREQUENTLY WELL CARDIAC TELEMETRY LEADS DESPITE ATTEMPTS AT TEACHING, REDIRECTION AND REORIENTATION. AT ABOUT 2232, RAPID RESPONSE ALERT WAS CALLED DUE TO PT'S HAVING ASHEN/CYANOTIC COLORED FACE WHILE HOB LOWERED TO HELP REPOSITION HIM AND OBTAIN URINE SPECIMEN DURING ONE OF THE EPISODES OF HIM TRYING TO GET OUT OF BED-NASAL CANNULA WAS ALREADY REAPPLIED BECAUSE HE HAD ONCE AGAIN REMOVED IT. 15L O2 VIA NRB WAS PLACED ON PT, HOB ELEVATED. BY 2233, RAPID RESPONSE TEAM ARRIVED. DR. KATZ WAS ALSO AT BEDSIDE-GAVE ORDERS FOR LABS. 2244:NEW IV ACCESS ESTABLISHED, PLACED IN CPAP 10 FiO2 100%. BP WAS STEADILY DROPPING (76/62) BY 2248. 1L NS BOLUS ORDERED, IV NS BAG TAKEN OVERRIDE FROM PYXIS AND BOLUS STARTED. PT TRANSFERRED TO ICU BED# 8. PT OFF FLOOR VIA BED ACCOMPANIED BY 3 NURSES AND 1 METAL BOX MAKER WITH PT KEYLA AND CHART ALSO IN TOW, AT ABOUT 2257. 230: CALL PLACED TO WILLIAM CLINE, RECEIVING NURSE IN ICU TO GIVE REPORT BUT SHE WAS NOT QUITE READY YET.
--- NOTE | 2021-08-28 | NUR ---
TRANSFER TO ICU RR WAS CALLED ON PT AT 2233 FROM FROM 326. PT WAS CYANOTIC WITH LOW OXYGEN SATURATION AND LOW BLOOD PRESSURE. PT WAS PLACED ON CPAP AND TRANSFERRED TO ICU ROOM 8, TOA 2300. PT WAS INITIALLY OBTUNDED BUT BECAME AGITATED LATER IN THE SHIFT PULLING OFF HIS OXYGEN MASK AND TRYING TO PULL OUT HIS RENNER AND IVS. BILATERAL SOFT WRIST RESTRAINTS PLACED PER MD ORDER. PT RECEIVED A 1LNS BOLUS FOR SOFT BLOOD PRESSURE AND NO FURTHER INTERVENTION WAS REQUIRED. A TEMP SENSING RENNER CATHETER WAS PLACED UPON PT ARRIVAL. PT WAS ALSO TAKEN FOR A CT OF THE HEAD THAT WAS NEGATIVE. A RIGHT UPPER ARM POWER GLIDE WAS ALSO PLACED UPON PT ARRIVAL TO THE ICU. PT MODE WAS CHANGED TO BIPAP DUE TO JOSEFA JOHNSON RESPIRATIONS WHICH HAVE RESOLVED SINCE PT ARRIVAL. PT SKIN WAS MOTTLED WHEN HE ARRIVED TO ICU BUT THAT HAS RESOLVED WELL. NO ACUTE DISTRESS NOTED AT THIS TIME.
[2021-08-28 00:06] LABS: Source, Urine Catheter
[2021-08-28 00:11] LABS: Bilirubin, Urine Neg (Neg); Blood, Urine 3+ (Neg); Glucose Qualitative, Urine Neg (Neg); Ketones, Urine Neg (Neg); Leukocyte Esterase, Urine Neg (Neg); Nitrite, Urine Neg (Neg); Protein, Urine 3+ (Neg); Urobilinogen, Urine 2+ (Normal)
[2021-08-28 00:12] LABS: Appearance, Urine Hazy (Clear); Color, Urine Yellow (P-Yellow)
[2021-08-28 00:21] LABS: Amorphous Heavy (0-Heavy); Bacteria Few /hpf; Squamous Epithelial Cells Few /hpf (Few); White Blood Cells, Urine 0-2 /hpf (0-5)
--- NOTE | 2021-08-28 01:09 | NUR ---
CALL PLACED TO PT'S , THAD, , AND NOTIFIED HER OF THE PT'S TRANSFER TO ICU (ROOM 8) AND THE EVENTS THAT LED UP TO IT. THE FEW QUESTIONS SHE HAD WERE ANSWERED. SHE VOICED HER UNDERSTANDING AND STATED THAT HER DAUGHTER WOULD BE IN TOWN TOMORROW AND WOULD LIKELY CALL TO SPEAK TO THE NURSE LATER THIS MORNING. ICU NURSE, WILLIAM CLINE RN WILL BE UPDATED.
[2021-08-28 03:58] LABS: BASOPHILS ABSOLUTE AUTO 0.05 K/mm3 (0.00-0.23); BASOPHILS PERCENT AUTO 0 % (0-2); EOSINOPHILS ABSOLUTE AUTO 0.03 K/mm3 (0.00-0.68); EOSINOPHILS PERCENT AUTO 0 % (0-6); Hematocrit 31.3 % (37.0-53.0); Hemoglobin 10.1 g/dL (13.5-17.5); IMMATURE GRAN ABSOLUTE AUTO 0.13 K/mm3 (0.00-0.10); IMMATURE GRAN PERCENT AUTO 1 % (0-1); LYMPHOCYTES ABSOLUTE AUTO 1.29 K/mm3 (0.84-5.20); LYMPHOCYTES PERCENT AUTO 9 % (21-46); MONOCYTES ABSOLUTE AUTO 1.79 K/mm3 (0.16-1.47); MONOCYTES PERCENT AUTO 13 % (4-13); Mean Corpuscular HGB 30.1 pg (26.0-34.0); Mean Corpuscular HGB Conc 32.3 g/dL (31.5-36.5); Mean Corpuscular Volume 93 fL (80-100); Mean Platelet Volume 12.2 fL (9.1-12.4); NEUTROPHILS ABSOLUTE AUTO 10.92 K/mm3 (1.96-9.15); NEUTROPHILS PERCENT AUTO 77 % (41-73); Platelet Count 155 K/mm3 (150-400); RDW Coefficient Variation 19.4 % (11.7-14.2); RDW Standard Deviation 63.2 fL (35.1-46.3); Red Blood Cell Count 3.35 M/mm3 (4.30-5.90); White Blood Cell Count 14.21 K/mm3 (4.00-11.30)
[2021-08-28 04:30] LABS: Calcium, Blood 8.6 mg/dL (8.5-10.1); Creatinine, Blood 2.3 mg/dL (0.60-1.20)
--- NOTE | 2021-08-28 09:58 | NUR ---
ASSUMED CARE OF PT @0700. PT ALERT TO SELF, PLEASANT AND FOLLOWING COMMANDS. PT TAKEN OFF OF BIPAP/CPAP AND PLACED ON 2L NC, SATS MAINTAINED>90%. PT TAKEN OUT OF RESTRAINTS. BED ALARM REMAINS ON. PT'S CALLED THIS MORNING AND WAS UPDATED ON PT'S STATUS AND PLAN OF CARE. PT MADE PCU STATUS. SEE FULL SHIFT ASSESSMENT.
[2021-08-28 11:18] LABS: C DIFFICILE DNA POSITIVE (Negative)
--- NOTE | 2021-08-28 14:38 | NUR ---
PT'S DAUGHTER ESTHER AT BEDSIDE. PER DAUGHTER PT WAS IN A 60 DAY DETOX FACILITY DETOXING FROM DRUGS AND ALCOHOL WHEN HE FELL AND BROKE HIS HIP. PT HAS ALSO RECENTLY BEEN DIAGNOSED WITH DEMENTIA.
--- NOTE | 2021-08-28 18:10 | NUR ---
SHIFT SUMMARY PT REMAINS ALERT TO SELF, PLEASANT AND COOPERATIVE WITH CARE. PT AMBULATES WELL WITH SBA AND WALKER, WORKED WITH PHYSICAL THERAPY THIS MORNING. PT ON 2L NC WITH SATS>90% WHILE AWAKE WITH OCCASIONAL SHORT APNEIC PERIODS WHILE SLEEPING. PT HAS AUDIBLE WHEEZING WITH EXERTION WITH INCREASED RR. PT CONTINUES TO DISPLAY JOSEFA JOHNSON BREATHING WHILE LYING FLAT AND COMPLAINS OF SOB. SEVERAL LOOSE STOOLS BEGINNING THIS MORNING, PT STATES HE HAS "HAD DIARRHEA FOR DAYS", STOOL SAMPLE SENT TO LAB-PRE[facility] POSITIVE FOR C-DIF. 750 ML BAHMAN URINARY OUTPUT THIS SHIFT. WILL REPORT TO ONCOMING NURSE.
--- NOTE | 2021-08-28 21:36 | NUR ---
FAMILY UPDATE: I CALLED AND SPOKE TO DOLLY TO UPDATE HER ON PT CONDITION AND TRANSFER TO PCU 10.
--- NOTE | 2021-08-28 21:37 | NUR ---
PT TRANSFERRED TO U 10
[2021-08-28 23:00] LABS: Vancomycin, Trough 24.3 ug/mL (5.0-10.0)
--- NOTE | 2021-08-29 02:07 | NUR ---
PATIENT RECTAL TUBE FOUND ON BED BALLOON INTACT, LARGE PASTE THICK STOOL, PATIENT CLEAN BEDDING CHANGED.
[2021-08-29 03:17] LABS: BASOPHILS ABSOLUTE AUTO 0.07 K/mm3 (0.00-0.23); BASOPHILS PERCENT AUTO 1 % (0-2); EOSINOPHILS ABSOLUTE AUTO 0.05 K/mm3 (0.00-0.68); EOSINOPHILS PERCENT AUTO 0 % (0-6); Hematocrit 32.6 % (37.0-53.0); Hemoglobin 10.4 g/dL (13.5-17.5); IMMATURE GRAN ABSOLUTE AUTO 0.12 K/mm3 (0.00-0.10); IMMATURE GRAN PERCENT AUTO 1 % (0-1); LYMPHOCYTES ABSOLUTE AUTO 1.35 K/mm3 (0.84-5.20); LYMPHOCYTES PERCENT AUTO 10 % (21-46); MONOCYTES ABSOLUTE AUTO 1.76 K/mm3 (0.16-1.47); MONOCYTES PERCENT AUTO 13 % (4-13); Mean Corpuscular HGB 30.1 pg (26.0-34.0); Mean Corpuscular HGB Conc 31.9 g/dL (31.5-36.5); Mean Corpuscular Volume 94 fL (80-100); Mean Platelet Volume 12.3 fL (9.1-12.4); NEUTROPHILS ABSOLUTE AUTO 10.42 K/mm3 (1.96-9.15); NEUTROPHILS PERCENT AUTO 76 % (41-73); Platelet Count 165 K/mm3 (150-400); RDW Standard Deviation 65.8 fL (35.1-46.3); Red Blood Cell Count 3.46 M/mm3 (4.30-5.90); White Blood Cell Count 13.77 K/mm3 (4.00-11.30)
[2021-08-29 03:32] LABS: Calcium, Blood 8.6 mg/dL (8.5-10.1); Creatinine, Blood 2.52 mg/dL (0.60-1.20); Potassium, Blood 4.8 mmol/L (3.5-5.5)
--- NOTE | 2021-08-29 03:44 | NUR ---
PATIENT WOUNDCARE COMPLETED WITH JUNIOR ARENAS ABD AND PAPER TAPE, SIGNED AND DATED PATIENT WEARING HIS PREVELON BOOTS, PATIENT MORE ALERT TONIGHT, TOOK MEDICATIONS IN PUDDING, SLEPT AFTER 2000 THROUGHOUT THE NIGHT, USED MUSIC THERAPY PUT ON THE [employer] CHOIR " [employer]" AND FELL ASLEEP.
--- NOTE | 2021-08-29 05:21 | NUR ---
CONFIRMED WITH NATALIE IN PHARMACY [facility] TO GIVE VANCOMYCIN ORAL PO WITH CRITICAL OF VANCOMYCIN 24.3.
[2021-08-29 10:46] LABS: Vancomycin, Random 19.3 ug/mL
--- NOTE | 2021-08-29 17:18 | NUR ---
SHIFT SUMMARY PT A&O TO SELF, SURROUNDING, FOLLOWING AND PRESIDENT. PT RESTING IN BED DURING SHIFT, APPEARS TO BE SLEEPING INTERMITTENTLY. PT DENIES PAIN, CHEST PAIN, NASUEA AND DIZZINESS T/O SHIFT. PT CONTINUE TO HAVE CHEYNNE JOHNSON BREATHING PATTERN WITH HOB IS LYING TOO LOW; ENCOURAGED ELEVATED. SPO2 >90% ON 3L O2 VIA NC, TITRATED TO 2L O2 VIA NC. PT RECIEVING IV ANTIBIOTICS AND PO ANTIBIOTICS. PT CONINUTES TO HAVE MULTIPLE INCONTINENT BMs DURING SHIFT. VSS. NO OTHER ACUTE CHANGES NOTED. WILL CONTINUE TO MONITOR UNITL REPORT GIVEN TO ONCOMING RN.
[2021-08-30 05:13] LABS: Hematocrit 33.3 % (37.0-53.0); Hemoglobin 10.4 g/dL (13.5-17.5); Mean Corpuscular HGB 29.4 pg (26.0-34.0); Mean Corpuscular HGB Conc 31.2 g/dL (31.5-36.5); Mean Corpuscular Volume 94 fL (80-100); Platelet Count 161 K/mm3 (150-400); RDW Coefficient Variation 20.3 % (11.7-14.2); Red Blood Cell Count 3.54 M/mm3 (4.30-5.90); White Blood Cell Count 11.31 K/mm3 (4.00-11.30)
[2021-08-30 05:31] LABS: Anion Gap 10 mmol/L (6-16); Blood Urea Nitrogen 77 mg/dL (8-24); Bun/Creatinine Ratio 32.8 (12.0-20.0); CO2, Blood 19 mmol/L (21-32); Calcium, Blood 8.7 mg/dL (8.5-10.1); Chloride, Blood 113 mmol/L (98-108); Creatinine, Blood 2.35 mg/dL (0.60-1.20); Glomerular Filtration Rate 27 (60-); Glucose, Blood 94 mg/dL (70-99); Potassium, Blood 4.1 mmol/L (3.5-5.5); Sodium, Blood 142 mmol/L (136-145); Vancomycin, Random 16.3 ug/mL
--- NOTE | 2021-08-30 05:33 | NUR ---
SHIFT SUMMARY PATIENT A PLESANT MAN WHO IS MOSTLY ORIENTED BUT FORGETFUL AT TIMES. FOLLOWS COMMANDS AND MOVES ALL EXTREMETIES. DID NOT SLEEP VERY MUCH THROUGH SHIFT. VSS. ON 2L WHEN ASLEEP RN ATTEMPTED TO PUT ON CPAP BUT PATIENT WOULD ONLY WEAR FOR SHORT TIMES BEFORE BECOMING AGITATED. MAINTAINS SATS IN THE HIGH 90'S ON RA WHEN AWAKE. NSR ON THE TELE MONITOR. MULTIPLE LARGE BM'S OVERNIGHT AND FRESH BRIEF IN PLACE. Q2H TURNS IN BED. RIGHT HIP INCISION OPEN TO AIR AND CLEAN, DRY, INTACT. RENNER PATENT DRAINING TO GRAVITY WITH GOOD OUTPUT. IN GOOD SPIRITS AND READY FOR BREAKFAST THIS MORNING. WILL CONTINUE PLAN OF CARE UNTIL REPORT GIVEN TO DAYSHIFT RN.
--- NOTE | 2021-08-30 17:41 | NUR ---
SHIFT SUMMARY PT A&Ox2; IRRITABLE AT TIMES. PT PULLED PIV OUT THIS AFTERNOON, PT STATES IT WAS BOTHERING, ATTEMPTED TO EDCUATED WHY NOT TO DO THAT, PT STATES "YES DEAR". PT DENIES PAIN, CHEST PAIN, SOB, NAUSEA AND DIZZINESS. PT ON 2-3L O2 VIA NC THIS AM, TITRATED TO RA THIS AM, SPO2 >90%. 1-2 PERSON ASSIST WITH WALKER TO BATHROOM. PT CONTINUES TO HAVE MULTIPLE EPISODES OF LOOSE STOOL, INCONTINENT AT TIMES. PT RECEIVING IV AND PO ANTIBIOTICS. ELEVATED BP THIS AM, TRENDING DOWN T/O SHIFT. OTHER VSS. NO OTHER ACUTE CHANGES NOTED. WILL CONTINUE TO MONITOR UNTIL REPORT GIVEN TO ONCOMING RN.
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
[2021-08-31 04:49] LABS: Hematocrit 34.6 % (37.0-53.0); Mean Corpuscular HGB 30.1 pg (26.0-34.0); Mean Corpuscular HGB Conc 31.8 g/dL (31.5-36.5); Mean Corpuscular Volume 95 fL (80-100); NRBC ABSOLUTE 0.03 K/mm3 (0.00-0.02); NRBC Auto 0.2 /100 WBC (0.0-0.2); Platelet Count 169 K/mm3 (150-400); RDW Coefficient Variation 20.6 % (11.7-14.2); RDW Standard Deviation 66.5 fL (35.1-46.3); Red Blood Cell Count 3.66 M/mm3 (4.30-5.90); White Blood Cell Count 12.15 K/mm3 (4.00-11.30)
[2021-08-31 05:43] LABS: Anion Gap 11 mmol/L (6-16); Blood Urea Nitrogen 74 mg/dL (8-24); Bun/Creatinine Ratio 34.6 (12.0-20.0); CO2, Blood 17 mmol/L (21-32); Calcium, Blood 8.9 mg/dL (8.5-10.1); Chloride, Blood 113 mmol/L (98-108); Creatinine, Blood 2.14 mg/dL (0.60-1.20); Glomerular Filtration Rate 30 (60-); Glucose, Blood 108 mg/dL (70-99); Potassium, Blood 4.1 mmol/L (3.5-5.5); Sodium, Blood 141 mmol/L (136-145); Vancomycin, Random 20.5 ug/mL
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
--- NOTE | 2021-08-31 14:43 | NUR ---
REPORT TO JOSE RN, PT TO GO TO 348
--- NOTE | 2021-08-31 15:04 | NUR ---
PT TRANSFERRED TO ROOM 348
--- NOTE | 2021-08-31 18:12 | NUR ---
PT ARRIVED TO ROOM 348 FROM ROOM 306 AROUND 1445 VIA BED. PT WAS IN SOFT WRIST RESTRAINTS AND VEST. THE PT IS VERY DROWSY, HOWEVER, DOES ANSWER SOME QUESTIONS. THE PT APPEARS TO BE APNIC O2 WAS APPLIED O2 SAT'S > 90%. PTS SON WAS AT THIS BEDSIDE THIS AFTERNOON AND MET WITH THE CAREMANAGER REGARDING DISCHARGE PLANNING. CALL LIGHT IN REACH. BED ALARM ON, WILL CONTINUE TO MONITOR ANDD ASSESS FOR CHANGES
--- NOTE | 2021-09-01 04:44 | NUR ---
SHIFT SUMMARY PT LETHARGIC THIS EVENING. WAKES AND ANSWERS QUESTIONS AND FOLLOWS DIRECTIONS BUT FALLS RIGHT BACK TO SLEEP. PULLS ON RESTRAINTS, BLANKETS, AND GOWN WHILE SLEEPING. BILATERAL SOFT WRIST RESTRAINTS REMAINED ON TO PROTECT LINES. RENNER CATHETER PATENT AND DRAINING. STAT LOCK PLACED TO RENNER. PT HAD ONE LARGE SOFT BOWEL MOVEMENT THIS EVENING. ORAL VANCO PER EMAR. PT DENIED PAIN. VITAL SIGNS STABLE. WILL CONTINUE TO MONITOR.
[2021-09-01 04:58] LABS: Base Excess Venous -6.3 mmol/L; PCO2 Venous 32.2 mmHg (38-42); PO2 Venous 140 mmHg (38-42); pH Blood Venous 7.38 (7.34-7.37)
[2021-09-01 05:12] LABS: Hematocrit 33.8 % (37.0-53.0); Hemoglobin 10.7 g/dL (13.5-17.5); Mean Corpuscular HGB 29.9 pg (26.0-34.0); Mean Corpuscular HGB Conc 31.7 g/dL (31.5-36.5); Mean Corpuscular Volume 94 fL (80-100); Platelet Count 152 K/mm3 (150-400); RDW Coefficient Variation 21.1 % (11.7-14.2); RDW Standard Deviation 67.1 fL (35.1-46.3); Red Blood Cell Count 3.58 M/mm3 (4.30-5.90); White Blood Cell Count 10.66 K/mm3 (4.00-11.30)
[2021-09-01 05:48] LABS: Bun/Creatinine Ratio 32.2 (12.0-20.0); Calcium, Blood 8.7 mg/dL (8.5-10.1); Creatinine, Blood 1.83 mg/dL (0.60-1.20); Potassium, Blood 3.8 mmol/L (3.5-5.5)
--- NOTE | 2021-09-01 17:40 | NUR ---
ALERT. ORIENTED. RESTRAINTS D'C THIS A.M. AT 0745. COOPERATIVE. ONE TO TWO ASSIST TO CHAIR OR BSC. ON 2 LPM. SURGICAL SITE LOOKS DRY, INTACT WITH NO SIGNS OF INFECTION. RENNER DRAINING TO GRAVITY. IV PATENT. WCTM
--- NOTE | 2021-09-02 03:59 | NUR ---
SHIFT SUMMARY ALERT TO SELF. REMAINS ON 2L NC LCTA WITH DIMINISHED BASES. NO BM ON NOC. RENNER DRAINING YELLOW URINE. SURGICAL INCISION TO RIGHT HIP HEALING NO S/S OF INFECTION. SCATTERED ABRASIONS AND ECCYMOSIS. NO SIGNIFICANT EVENTS OVERNIGHT.
[2021-09-02 05:08] LABS: Hematocrit 34.7 % (37.0-53.0); Mean Corpuscular HGB 30.1 pg (26.0-34.0); Mean Corpuscular HGB Conc 31.7 g/dL (31.5-36.5); Mean Corpuscular Volume 95 fL (80-100); Mean Platelet Volume 11.9 fL (9.1-12.4); Platelet Count 162 K/mm3 (150-400); RDW Coefficient Variation 21.2 % (11.7-14.2); RDW Standard Deviation 70.3 fL (35.1-46.3); Red Blood Cell Count 3.66 M/mm3 (4.30-5.90); White Blood Cell Count 12.68 K/mm3 (4.00-11.30)
[2021-09-02 05:42] LABS: Bun/Creatinine Ratio 27.7 (12.0-20.0); Calcium, Blood 8.6 mg/dL (8.5-10.1); Creatinine, Blood 1.66 mg/dL (0.60-1.20); Potassium, Blood 3.6 mmol/L (3.5-5.5)
[2021-09-03 05:34] LABS: Bun/Creatinine Ratio 24.8 (12.0-20.0); Calcium, Blood 8.4 mg/dL (8.5-10.1); Creatinine, Blood 1.53 mg/dL (0.60-1.20); Potassium, Blood 4.1 mmol/L (3.5-5.5)
--- NOTE | 2021-09-03 09:45 | NUR ---
904 PT CLIMBED OOB WITHOUT HELP, UNABLE TO STAND AND FELL TO THE FLOOR, WITNESSED BY [facility] [employer]ACILITIES SHE WAS GOING INTO ROOM. PT C/O RT HIP PAIN, LIFT USED TO RETURN PT TO BED. DR CHOI NOTIFIED AND XRAY ORDERED. SEE CHART FOR RESULTS. IV DILAUDID ORDERED FOR PAIN. SPOUSE NOTIFIED. PT RESTING, WILL CONTINUE TO MONITOR
--- NOTE | 2021-09-03 11:58 | NUR ---
PT UPDATE NURSE RECIVED CALL FROM [employer] MONITORING PERTAINING TO PT ATTMPTING TO CRAWL OUT OF BED WITHOUT STAFF ASSISTANCE. MYSELF AND PT'S GELATIN POWDER MIXER QUICKLY RESPONDED TO THE PATIENT'S ROOM, BUT PT HAD STOOD UP AND THEN FELL ON HIS BUTT WE ARRIVED. THE NURSE WAS NOTIFED OF THE INCIDENT AND PT WAS ASSESSED BY GELATIN POWDER MIXER'S AND NURSE FOR INJURIES.THE PT WAS THEN SAFELY PUT BACK INTO BED VIA SIT TO STAND LIFT AND CLEANED UP. NURSE TOLD ME SHE DOCUMENTED THE INCIDENT REPORT FOR THE FALL. NURSE STATED SHE WOULD INFORM THE PT'S PHYSCIAN.
--- NOTE | 2021-09-03 20:59 | NUR ---
VTIAL SIGNS TAKEN, NOTED IRREGULAR BREATHING. O2 SATS IN 80'S. O2 CANNULA APPLIED AT 2L/MIN. SATS TRENDED INTO THE 90'S. PT'S RN NOTIFIED OF ELEVATED BP AND IRREGULAR BREATHS. BILAT WRIST RESTRAINTS INTACT PER MD ORDERS - TRIES TO GET OOB AND PUL OFF O2, AND IVS, ETC. CALL LIGHT IN REACH
--- NOTE | 2021-09-04 06:04 | NUR ---
SUMMARY PAIN MANAGED WELL PER EMAR. PT PLACED ON 3LPM O2 VIA NC TO MAINTAIN SPO2 >90%. PT HAS BEEN NPO SINCE 0000 HRS FOR POSSIBLE SX PROCEDURE. PT SLEEPING COMFORTABLY. BED ALARM ON.
--- NOTE | 2021-09-04 12:59 | NUR ---
REPORT TO ELIGIO AT [facility] [phone], PT BEING TRANSFERRED TO [facility], NOTIFIED PT'S SPOUSE DOLLY [phone], PT TAKEN BY TRICE
== END 2021-09-04 14:06 | disposition short-term general hospital (02) | DRG 871 ==
LOC: ER 19:51 → MEDS 08-27 00:46 → ERHOLD 08-27 00:46 → MEDS 08-27 16:04 → ICUE 08-27 22:57 → PCU 08-28 21:26 → MEDS 08-30 23:37
PROVIDERS: Emergency Medicine; Family Medicine; Internal Medicine; ADMIT Internal Medicine
PROC: 5A09357 Assistance with Respiratory Ventilation, Less than 24 Consecutive Hours, Continuous Positive Airway Pressure (ICD-10-PCS; principal; 2021-08-27)
DX: A41.9 Sepsis, unspecified organism (principal); J96.01 Acute respiratory failure with hypoxia; S72.001A Fracture of unspecified part of neck of right femur, initial encounter for closed fracture; J18.9 Pneumonia, unspecified organism; G92.8 Other toxic encephalopathy; I50.23 Acute on chronic systolic (congestive) heart failure; T84.52XA Infection and inflammatory reaction due to internal left hip prosthesis, initial encounter; N17.9 Acute kidney failure, unspecified; M97.01XA Periprosthetic fracture around internal prosthetic right hip joint, initial encounter; E03.9 Hypothyroidism, unspecified; F41.8 Other specified anxiety disorders; W18.30XA Fall on same level, unspecified, initial encounter; I25.10 Atherosclerotic heart disease of native coronary artery without angina pectoris; G47.33 Obstructive sleep apnea (adult) (pediatric); Z20.822 Contact with and (suspected) exposure to COVID-19; Z91.19 Patient's noncompliance with other medical treatment and regimen; F15.90 Other stimulant use, unspecified, uncomplicated; Z87.891 Personal history of nicotine dependence; Z79.899 Other long term (current) drug therapy; Z88.2 Allergy status to sulfonamides; Z88.6 Allergy status to analgesic agent; Z78.1 Physical restraint status; E66.9 Obesity, unspecified; Z68.30 Body mass index [BMI] 30.0-30.9, adult; R79.89 Other specified abnormal findings of blood chemistry
CPT/HCPCS: 0241U; 36415; 51702; 51798; 70450; 71045; 72170; 76770; 80048; 80053; 80069; 80202; 81001; 82803; 83605; 83735; 83880; 84145; 84443; 84484; 85025; 85027; 87040; 87324; 87493; 93005; 93010; 94660; 94760; 94762; 96365; 96366; 96375; 97110; 97116; 97162; 97166; 97530; 97535; 99285-25; A9270; C1751; J0692; J1170; J1630; J1650; J1940; J2543; J3370; J7030; J7050; J7120